=== PATIENT | female | born 1985 | race Two or more races ===

== ENCOUNTER 2019-01-26 20:28 | Emergency (ER) | payer OTHER ==
[~2019-01-26] VITALS: Ht 154.9 cm; Wt 51.7 kg
== END 2019-01-26 22:45 | disposition home or self-care (01) ==
LOC: ER 20:28
DX: K29.60 Other gastritis without bleeding (principal)

== ENCOUNTER 2022-05-04 08:01 | Emergency (ER) | payer OTHER ==
[~2022-05-04] VITALS: Ht 152.4 cm; Wt 49.9 kg
== END 2022-05-04 11:27 | disposition home or self-care (01) ==
LOC: ER 08:01
DX: J09.X2 Influenza due to identified novel influenza A virus with other respiratory manifestations (principal)